=== PATIENT | male | born 1940 | race Caucasian/White ===

== ENCOUNTER 2018-05-10 07:26 | Emergency (ER) | payer OTHER, SELFPAY ==
[2018-05-10 07:40] VITALS: BP 188/99; PULSE 68; RESP 18; TEMP 37.3; O2SAT 97; BMI 30.3
[2018-05-10 08:12] LABS: Bacteria Urine None Seen; WBC Urine None Seen (0-5/HPF)
[2018-05-10 08:13] LABS: Appearance Urine UA CLEAR; Bilirubin Urine UA NEGATIVE (NEGATIVE); Color Urine UA YELLOW; Glucose Urine UA NEGATIVE (Normal); Ketones Urine UA NEGATIVE (NEGATIVE); Leukocyte Esterase Urine UA NEGATIVE (NEGATIVE); Nitrite Urine UA Negative (Negative); Occult Blood Urine UA 3+ (Negative); Protein Urine UA NEGATIVE (Negative); Urobilinogen Urine UA 0.2 E.U./dL (0.2)
[2018-05-10 08:23] LABS: Culture Indicated Urine Cult Not Indicated; RBC Urine 5-10/HPF (0-5/HPF); Squamous Epithelial Cell Urine 0-1 /HPF
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
[2018-05-10 09:27] VITALS: BP 123/67; PULSE 82; RESP 18; O2SAT 98
--- NOTE | 2018-05-10 09:38 | PC.NURSE ---
patients urinary catheter switched to a leg bag. clear yellow urine when switched. no new orders at this time.
--- NOTE | 2018-05-10 09:47 | PC.NURSE ---
Changed to leg bag w/ appropriate education. Verbalized understanding. Encouraged to f/u as needed and indicated. Clear yellow urine out of catheter after change to leg bag.
== END 2018-05-10 09:49 | disposition home or self-care (01) ==
PROVIDERS: Emergency Provider Emergency Medicine
DX: R33.9 Retention of urine, unspecified (principal)
CPT/HCPCS: 51701; 51798; 81001; 99283

== ENCOUNTER 2018-05-16 00:36 | Emergency (ER) | payer OTHER, SELFPAY ==
--- NOTE | 2018-05-16 00:42 | ED.MALEGU ---
HPI - Male Genitourinary General Chief complaint: Urogenital-Male Stated complaint: UTI Time Seen by Provider: 05/16/18 00:42 Source: patient and family Mode of arrival: ambulatory Limitations: no limitations History of Present Illness HPI Narrative: 78-year-old male presents to the emergency department with his . He has a history of BPH and urinary retention and complains of an inability to urinate with increasing suprapubic tenderness over the day. He denies fever, chills nor nausea or vomiting. He does complain of some blood at his urethral meatus but has been self cathing for 2 days. Originally he had a Cho in place for 2 days and followed up with Urology and had failed the void test and was encouraged to self cath which he had been doing up until today. Patient felt near total resolution of symptoms after a Cho catheter was placed following a bladder scan noting greater than 900 cc Onset (ago): hour(s) Duration: constant Location: abdomen Severity: moderate Quality: aching Relieving factors: none Exacerbating factors: none Reports denies other symptoms Related Data Home Medications Medication Instructions Recorded Confirmed aspirin [Aspirin Low Dose] 81 mg PO DAILY 05/10/18 05/10/18 sulfamethoxazole-trimethoprim 2 tab PO BID 05/16/18 05/16/18 [Bactrim DS] Allergies Allergy/AdvReac Type Severity Reaction Status Date / Time No Known Drug Allergies Allergy Verified 05/16/18 00:49 Review of Systems Review of Systems All systems reviewed & are unremarkable except as noted in HPI and below Constitutional Denies chills, Denies fever(s), Denies lethargy and Denies weakness Eyes Denies change in vision, Denies eye discharge, Denies irritation and Denies loss of vision ENT Ears, Nose, Mouth, and Throat: Denies change in voice, Denies neck pain and Denies sore throat Cardiovascular Denies chest pain, Denies irregular heart rhythm, Denies lightheadedness, Denies palpitations, Denies dyspnea, Denies dyspnea on exertion and Denies orthopnea Respiratory Denies cough, Denies dyspnea, Denies dyspnea on exertion and Denies wheezing Gastrointestinal Gastrointestinal: Denies abdominal pain, Denies change in bowel habits, Denies diarrhea, Denies nausea and Denies vomiting Genitourinary Reports hematuria, Denies flank pain, Denies urinary incontinence and Denies urinary urgency Musculoskeletal Denies neck pain Integumentary/Breasts Denies pruritus, Denies erythema, Denies rash and Denies wounds Neurologic Denies confusion, Denies loss of vision and Denies weakness Psychiatric Denies anxiety, Denies confusion, Denies depression, Denies homicidal ideation and Denies suicidal ideation Endocrine Denies palpitations Hematologic/Lymphatic Denies easy bruising Allergic/Immunologic Denies wheezing PFSH Medical History A-fib (Acute) HTN (hypertension) (Acute) Social History Smoking Status: Former smoker Exam Narrative Exam Narrative: GEN: AOx3 and in mild distress EYES: Pupils are equal, round, and reactive to light and accommodation. Extraoccular muscles are intact bilaterally. There is no subconjunctival hemorrhage or exudate. CHEST: Lungs are clear to auscultation bilaterally and free of wheezes, rales, or rhonchi. Heart rate is regular rhythm, there are no murmurs, clicks, rubs, or gallops. There is no chest wall tenderness. ABD: Abdomen is soft and nontender. There is no guarding or rebound. Bowel sounds are normal in all 4 quadrants. There is no mass or organomegaly. EXT: Full painless ROM of all extremities with no loss of sensation or strength. SKIN: Warm, pink, and dry. No erythema or rash Initial Vital Signs Initial Vital Signs: Vital Signs Temperature 99.5 F 05/16/18 00:51 Pulse Rate 68 05/16/18 00:51 Respiratory Rate 20 05/16/18 00:51 Blood Pressure 184/85 H 05/16/18 00:51 Pulse Oximetry 99 05/16/18 00:51 Course Orders Ordered: ED Orders 05/16/18 Basic Metabolic Panel Stat 05/16/18 00:40 Urinalysis and Microscopic Stat 05/16/18 01:20 Complete Blood Count AUTO DIFF Stat Lactate (Lactic Acid) Stat Procalcitonin Stat 05/16/18 01:34 Blood Culture Stat Discontinued Medications Sodium Chloride (Normal Saline 0.9%) 1,000 mls @ 1,000 mls/hr IV BOLUS ONE Stop: 05/16/18 02:04 Last Admin: 05/16/18 02:13 Dose: 1,000 mls/hr Vital Signs - 8 hr 05/16/18 00:51 05/16/18 03:01 Temperature 99.5 F Pulse Rate 68 65 Respiratory Rate 20 20 Blood Pressure 184/85 H Blood Pressure [Left Arm] 157/77 H Pulse Oximetry 99 98 MDM - Male Genitourinary Lab Data Result diagrams: 05/16/18 01:20 05/16/18 Unknown Lab Results 05/16/18 05/16/18 05/16/18 Range/Units 00:40 01:20 01:20 WBC 15.0 H (4.5-11.0) X10^3/uL RBC 4.86 (4.5-5.9) X10^6/uL Hgb 14.3 (13.5-17.5) g/dL Hct 41.7 (41-53) % MCV 85.7 (80-100) fL MCH 29.4 (26-34) PG MCHC 34.3 (30-36) % RDW 14.5 (11.6-14.8) % Plt Count 174 (150-400) X10^3/uL Neut % (Auto) 60.8 (50-75) % Lymph % (Auto) 34.8 (25-40) % [place] % (Auto) 4.2 (3-14) % Eos % (Auto) 0.0 L (2-4) % Baso % (Auto) 0.2 (0-2) % Neut # (Auto) 9100 H (7577-0706) /uL Sodium (137-145) mmol/L Potassium (3.4-5.1) mmol/L Chloride (98-107) mmol/L Carbon Dioxide (22-32) mmol/L BUN (9-20) mg/dL Creatinine (0.66-1.25) mg/dL Estimated GFR (>60) mL/min BUN/Creatinine Ratio (6-22) Glucose (80-110) mg/dL Lactate (0.7-2.1) mmol/L Calcium (8.4-10.2) mg/dL Procalcitonin < 0.05 (<0.5) ng/mL Urine Color Yellow Urine Appearance Sl cloudy Urine pH 5.0 (4.5-8.0) Ur Specific [place] <=1.005 (1.000-1.035) Urine Protein Trace H (Negative) Urine Glucose (UA) Negative (Normal) g/dL Urine Ketones Negative (NEGATIVE) Urine Occult Blood 3+ H (Negative) Urine Nitrate Negative (Negative) Urine Bilirubin Negative (NEGATIVE) Urine Urobilinogen 0.2 (0.2) E.U./dL Ur Leukocyte Esterase Trace H (NEGATIVE) Urine RBC 5-10/hpf H (0-5/HPF) Urine WBC None seen (0-5/HPF) Ur Squamous Epith Cells 0-1 /hpf Urine Bacteria None seen (None) Ur Culture Indicated? Cult not indicated Micro UA Comment Not Reportable 05/16/18 05/16/18 Range/Units 01:20 Unknown WBC (4.5-11.0) X10^3/uL RBC (4.5-5.9) X10^6/uL Hgb (13.5-17.5) g/dL Hct (41-53) % MCV (80-100) fL MCH (26-34) PG MCHC (30-36) % RDW (11.6-14.8) % Plt Count (150-400) X10^3/uL Neut % (Auto) (50-75) % Lymph % (Auto) (25-40) % [place] % (Auto) (3-14) % Eos % (Auto) (2-4) % Baso % (Auto) (0-2) % Neut # (Auto) (2585-9109) /uL Sodium 136 L (137-145) mmol/L Potassium 4.2 (3.4-5.1) mmol/L Chloride 101 (98-107) mmol/L Carbon Dioxide 21 L (22-32) mmol/L BUN 19 (9-20) mg/dL Creatinine 1.50 H (0.66-1.25) mg/dL Estimated GFR 45.4 L (>60) mL/min BUN/Creatinine Ratio 12.7 (6-22) Glucose 148 H (80-110) mg/dL Lactate 1.5 (0.7-2.1) mmol/L Calcium 9.0 (8.4-10.2) mg/dL Procalcitonin (<0.5) ng/mL Urine Color Urine Appearance Urine pH (4.5-8.0) Ur Specific [place] (1.000-1.035) Urine Protein (Negative) Urine Glucose (UA) (Normal) g/dL Urine Ketones (NEGATIVE) Urine Occult Blood (Negative) Urine Nitrate (Negative) Urine Bilirubin (NEGATIVE) Urine Urobilinogen (0.2) E.U./dL Ur Leukocyte Esterase (NEGATIVE) Urine RBC (0-5/HPF) Urine WBC (0-5/HPF) Ur Squamous Epith Cells Urine Bacteria (None) Ur Culture Indicated? Micro UA Comment Discharge Plan Departure Patient Disposition: Home Clinical Impression: Acute urinary retention, Acute UTI Instructions: DI for Urinary Tract Infection (UTI) Activity Restrictions/Additional Instructions: *You have been diagnosed with [ acute urinary retention with possible UTI ] *What to do: *Take medications as directed *Follow up with your urologist in 2-3 days, call for an appointment. Let them know you were seen in the Emergency Department and that we ask that you be seen in follow up *Return to ER if you should have any new, worsening or concerning symptoms Prescriptions: No Action aspirin [Aspirin Low Dose] 81 mg Tablet,Delayed Release (Dr/Ec) 81 mg PO DAILY RF: 0 sulfamethoxazole-trimethoprim [Bactrim DS] 800-160 mg Tablet 2 tab PO BID RF: 0
[2018-05-16 00:51] VITALS: BP 184/85; PULSE 68; RESP 20; TEMP 37.5; O2SAT 99; BMI 31.6
[2018-05-16 01:15] LABS: Bacteria Urine None Seen; WBC Urine None Seen (0-5/HPF)
[2018-05-16 01:16] LABS: Appearance Urine UA SL CLOUDY; Bilirubin Urine UA NEGATIVE (NEGATIVE); Color Urine UA YELLOW; Glucose Urine UA NEGATIVE (Normal); Ketones Urine UA NEGATIVE (NEGATIVE); Leukocyte Esterase Urine UA TRACE (NEGATIVE); Nitrite Urine UA Negative (Negative); Occult Blood Urine UA 3+ (Negative); Protein Urine UA TRACE (Negative); Specific Gravity Urine UA <=1.005 (1.000-1.035); Urobilinogen Urine UA 0.2 E.U./dL (0.2)
[2018-05-16 01:22] LABS: RBC Urine 5-10/HPF (0-5/HPF)
[2018-05-16 01:23] LABS: Culture Indicated Urine Cult Not Indicated; Squamous Epithelial Cell Urine 0-1 /HPF
[2018-05-16 01:33] LABS: Add Manual Diff / Slide Review NO; Basophils Percent Auto 0.2 % (0-2); Hematocrit 41.7 % (41-53); Hemoglobin 14.3 g/dL (13.5-17.5); Lymphocytes Percent Auto 34.8 % (25-40); Mean Corpuscular HGB Conc 34.3 % (30-36); Mean Corpuscular Hemoglobin 29.4 PG (26-34); Mean Corpuscular Volume 85.7 fL (80-100); Monocytes Percent Auto 4.2 % (3-14); Neutrophils Absolute Auto 9100 /uL (3000-5900); Neutrophils Percent Auto 60.8 % (50-75); Platelet Count 174 X10^3/uL (150-400); Red Blood Cell Count 4.86 X10^6/uL (4.5-5.9); Red Cell Distribution Width 14.5 % (11.6-14.8)
[2018-05-16 01:43] LABS: Lactate (Lactic Acid) 1.5 mmol/L (0.7-2.1)
--- NOTE | 2018-05-16 01:55 | PC.NURSE ---
pt reports being in er a week ago and having a catheter placed. follow up with urology and removed cath. urology had him self strait cath. they gave him 2 catheters, one to use and one for a spare if the first one gums up.
[2018-05-16 02:02] LABS: Procalcitonin < 0.05 ng/mL (<0.5)
[2018-05-16 02:08] LABS: BUN Creatinine Ratio 12.7 (6-22); Blood Urea Nitrogen 19 mg/dL (9-20); Carbon Dioxide 21 mmol/L (22-32); Chloride 101 mmol/L (98-107); Estimated Glomerular Filt Rate 45.4 mL/min (>60); Glucose 148 mg/dL (80-110); HEMOLYSIS < 15 (0-50); Potassium 4.2 mmol/L (3.4-5.1); Sodium 136 mmol/L (137-145)
[2018-05-16] MEDS: SODIUM CHLORIDE 0.9% 1,000 ML 1000 ML IV (02:13)
[2018-05-16 03:01] VITALS: BP 157/77; PULSE 65; RESP 20; O2SAT 98
--- NOTE | 2018-05-16 03:01 | PC.NURSE ---
pt resting with eyes closed by easily aroused by light noise. VS obtained and noted.
[2018-05-16 05:00] VITALS: BP 138/88; PULSE 86; RESP 18; O2SAT 99
[2018-05-17 10:10] LABS: Acinetobacter baumannii Not Detected (Not Detect); Candida albicans Not Detected (Not Detect); Candida glabrata Not Detected (Not Detect); Candida krusei Not Detected (Not Detect); Candida parapsilosis Not Detected (Not Detect); Candida tropicalis Not Detected (Not Detect); E. coli Not Detected (Not Detect); Enterobacter cloacae complex Not Detected (Not Detect); Enterobacteriaceae species Not Detected (Not Detect); Enterococcus species Not Detected (Not Detect); Haemophilus influenzae Not Detected (Not Detect); KPC (carbapenem-resist gene) Not Detected (Not Detect); Listeria monocytogenes Not Detected (Not Detect); Neisseria meningitidis Not Detected (Not Detect); Proteus species Not Detected (Not Detect); Pseudomonas aeruginosa Not Detected (Not Detect); Serratia marcescens Not Detected (Not Detect); Streptococcus agalactiae (Gr B Not Detected (Not Detect); Streptococcus pneumonia Not Detected (Not Detect); Streptococcus pyogenes (Gr A) Not Detected (Not Detect); Streptococcus species Not Detected (Not Detect)
--- NOTE | 2018-05-17 10:11 | PC.NURSE ---
Call from lab, + blood culture in only one bottle of 4. Staph species. Will not do further work up unless requested or other bottles become positive.
[2018-05-17 10:12] LABS: Methicillin-resistant gene Detected (Not Detect); Staphylococcus species Detected (Not Detect)
--- NOTE | 2018-05-17 11:15 | PC.NURSE ---
Discussed w/ Dr. Little. Called pt in follow up. Left message on listed phone number (pt identified himself on phone message) Encouraged to call back if any concerns, was not feeling better or questions. Gave ED phone number. No PCP listed to fax results to.
== END 2018-05-16 05:02 | disposition home or self-care (01) ==
PROVIDERS: Emergency Provider Emergency Medicine
DX: N39.0 Urinary tract infection, site not specified (principal); R33.9 Retention of urine, unspecified
CPT/HCPCS: 36415; 36591; 51701; 80048; 81001; 81003; 83605; 84145; 85025; 87040; 87077; 87147; 87150; 87186; 87205; 96360; 99283; 99284